=== PATIENT | male | born 1950 | race Caucasian/White ===

== ENCOUNTER 2022-12-01 15:07 | Emergency (ER) | payer OTHER ==
[2022-12-01 15:29] LABS: Lymphocytes % 35.2 % (15.3-44.8); MCV 89.5 fL (80-100); MPV 6.8 fL (7.6-11.3); RBC Red Blood Cell Count 4.81 M/uL (4.33-5.43)
--- NOTE | 2022-12-01 15:40 | RAD REPORT ---
EXAM DESCRIPTION: CT - Head C Spine Mpr Wo Con - 12/01/2022 3:24 pm CLINICAL HISTORY: Head and neck injury status post trauma. Head and neck pain COMPARISON: None. TECHNIQUE: Computed axial tomography of the head and cervical spine was obtained. Sagittal and coronal reconstruction was performed. All CT scans are performed using dose optimization technique as appropriate and may include automated exposure control or mA/KV adjustment according to patient size. FINDINGS: An intracranial bleed is not seen. The ventricles are normal in caliber. An extra-axial fl uid collection is not noted.Fluid within the visualized sinuses and mastoids is not seen A cervical fracture is not visualized. No dislocation is noted. Spondylosis involves the cervical spine. Laceration posterior neck. Air is present within mostly the subcutaneous tissues posteriorly. IMPRESSION: No acute intracranial abnormality is seen. A cervical fracture is not visualized. If the patient continues to have symptoms to suggest intracra nial /spinal cord pathology then MRI would be recommended
[2022-12-01] MEDS ORDERED: BUPIVACAINE 0.5% PF 10 ML VIAL ONE (15:53)
[2022-12-01] MEDS ORDERED: LIDOCAINE 1% 20 ML MDV ONE (15:54)
[2022-12-01] MEDS ORDERED: TDAP (DIPHTH,PERTUSS(ACELL),TET VAC) 0.5 ML VIAL IMVAC ONE (15:56)
[2022-12-01 16:03] LABS: Potassium 3.6 mmol/L (3.5-5.1)
--- NOTE | 2022-12-01 16:41 | ER ---
Nurse's Notes [facility] Name: Alexander Prieto Jr Age: 72 yrs Sex: Male : 1950 Arrival Date: 12/01/2022 Time: 15:12 Bed 2 Private MD: Diagnosis: Laceration without foreign body of unspecified back wall of thorax without penetration into thoracic cavity, sequela;Concussion with loss of consciousness of 30 minutes or less Presentation: 12/01 15:20 Chief complaint: EMS states: Was at medical clinic in [place] waiting for ph appointment when a large piece of sheet metal came through/puntured the wall and hit pt in the back of the neck, no LOC but pt was disoriented for approx 15 minutes after incident, laceration to back of neck, c-collar in place, VSS, pt A\T\O x 4 upon arrival to ED. Coronavirus screen: Vaccine status: Patient reports receiving the 2nd dose of the covid vaccine. Ebola Screen: No symptoms or risks identified at this time. Initial Sepsis Screen: Does the patient meet any 2 criteria? No. Patient's initial sepsis screen is negative. Does the patient have a suspected source of infection? No. Patient's initial sepsis screen is negative. Risk Assessment: Do you want to hurt yourself or someone else? Patient reports no desire to harm self or others. Onset of symptoms was December 01, 2022. 15:20 Method Of Arrival: [facility] ph 15:20 Acuity: AUSTEN 2 ph 15:20 Care prior to arrival: Cervical collar in place. Mechanism of Injury: Laceration ph sustained Medical clinic from metal object, Injury was accidental. Trauma event details: Injury occurred in the [facility], Injury occurred: in a public building. Injury occurred: December 01, 2022. Triage Assessment: 15:29 General: Appears in no apparent distress. Behavior is calm, cooperative, appropriate ph for age. Pain: Complains of pain in posterior cervical area, left trapezius and right trapezius. Trauma Activation: Physician: ED Physician; Name: Elsi; Notified At: 15:15; Arrived At: 15:15 Physician: General Surgeon; Name: ; Notified At: 15:15; Arrived At: Physician: Radiology; Name: Valdez; Notified At: 15:15; Arrived At: 15:15 Physician: Respiratory; Name: ; Notified At: 15:15; Arrived At: Physician: Lab; Name: ; Notified At: 15:15; Arrived At: Historical: - Allergies: 15:29 No Known Allergies; ph - PMHx: 15:29 Hypertensive disorder; ph - Immunization history:: Adult Immunizations unknown. - Social history:: Smoking status: Patient reports the use of cigarette tobacco products, smokes one pack cigarettes per day. - Immunization history: Last tetanus immunization: unknown. Screenin:30 [facility] ED Fall Risk Assessment (Adult) History of falling in the last 3 months, ph including since admission No falls in past 3 months (0 pts) Confusion or Disorientation No (0 pts) Intoxicated or Sedated No (0 pts) Impaired Gait No (0 pts) Mobility Assist Device Used No (0 pt) Altered Elimination No (0 pt) Score/Fall Risk Level 0 - 2 = Low Risk Oriented to surroundings, Maintained a safe environment. Abuse screen: Denies threats or abuse. Denies injuries from another. Nutritional screening: No deficits noted. Tuberculosis screening: No symptoms or risk factors identified. Primary Survey: 15:20 NO uncontrolled hemorrhage observed. A: The client is awake and alert. The airway is ph patent. Breathing/Chest: Spontaneous respiratory effort, equal unlabored respirations, breath sounds clear bilaterally, regular pattern, symmetrical chest rise and fall. Circulation: No external hemorrhage present. Regular and strong central pulse, skin warm/dry/normal color. Disability Pupils are equal, round, reactive to light and accommodation. Client is alert. Exposure/Environment: Obvious injury(ies) are noted at this time: laceration to back of neck A warming method has been applied: A warm blanket has been provided to the patient. 16:30 Reassessment Alertness and Airway: Awake and alert. The airway is patent. Breathing: ph Spontaneous respiratory effort, equal unlabored respirations, breath sounds clear bilaterally, regular pattern with symmetrical chest rise and fall. Circulation: No external hemorrhage noted. Regular and strong central pulse, skin warm/dry/normal color. Disability: Pupils Pupils are equal, round, reactive to light and accomodation. Secondary Survey: 15:34 HEENT: No deficits noted. Gastrointestinal: No deficits noted. Musculoskeletal: Reports ph pain in right trapezius and left trapezius and posterior cervical area. Assessment: 15:36 General: Appears in no apparent distress. Behavior is calm, cooperative, appropriate ph for age. Pain: Complains of pain in right trapezius and left trapezius and posterior cervical area. Neuro: Level of Consciousness is awake, alert, obeys commands, Oriented to person, place, time, situation. Cardiovascular: Capillary refill < 3 seconds in bilateral fingers Patient's skin is warm and dry. Respiratory: Airway is patent Respiratory effort is even, unlabored. GI: No signs and/or symptoms were reported involving the gastrointestinal system. Derm: Skin is healthy with good turgor, Skin is pink, warm \T\ dry. 16:10 Injury Description: Laceration sustained to back of neck and posterior cervical area is ph full thickness, > 20 cm long, not bleeding. Vital Signs: 15:20 BP 131 / 75; Pulse 68; Resp 18; Temp 97.8; Pulse Ox 98% on R/A; Weight 92.99 kg; Height ph 5 ft. 10 in. (177.80 cm); 16:30 BP 142 / 90; Pulse 72; Resp 18; Temp 97.9; Pulse Ox 99% on R/A; ph 17:11 BP 129 / 78; Pulse 71; Resp 18; Temp 98.0; Pulse Ox 99% on R/A; ph 15:20 Body Mass Index 29.41 (92.99 kg, 177.80 cm) ph Branford Coma Score: 15:35 Eye Response: spontaneous(4). Verbal Response: oriented(5). Motor Response: obeys ph commands(6). Total: 15. 16:30 Eye Response: spontaneous(4). Verbal Response: oriented(5). Motor Response: obeys ph commands(6). Total: 15. 17:11 Eye Response: spontaneous(4). Verbal Response: oriented(5). Motor Response: obeys ph commands(6). Total: 15. Trauma Score (Adult): 15:35 Eye Response: spontaneous(1); Verbal Response: oriented(1); Motor Response: obeys ph commands(2); Systolic BP: > 89 mm Hg(4); Respiratory Rate: 10 to 29 per min(4); Grecia Score: 15; Trauma Score: 12 16:30 Eye Response: spontaneous(1); Verbal Response: oriented(1); Motor Response: obeys ph commands(2); Systolic BP: > 89 mm Hg(4); Respiratory Rate: 10 to 29 per min(4); Branford Score: 15; Trauma Score: 12 17:11 Eye Response: spontaneous(1); Verbal Response: oriented(1); Motor Response: obeys ph commands(2); Systolic BP: > 89 mm Hg(4); Respiratory Rate: 10 to 29 per min(4); Grecia Score: 15; Trauma Score: 12 ED Course: 15:12 Patient arrived in ED. ss 15:12 Pollo Calzada DO is Attending Physician. ms3 15:20 Shu Aguila, YAZMIN is Primary Nurse. ph 15:26 CT Head C Spine In Process Unspecified. EDMS 15:28 Triage completed. ph 15:29 Arm band placed on Patient placed in an exam room, on a stretcher, on pulse oximetry. ph 15:30 Patient has correct armband on for positive identification. Bed in low position. Call ph light in reach. Side rails up X 1. Pulse ox on. NIBP on. 15:30 Maintain EMS IV. Dressing intact. Good blood return noted. Site clean \T\ dry. Gauge \T\ ph site: 18 RAC. IV is patent, with fluids infusing freely, with good blood return, Flushed right antecubital with 5 ml normal saline. 15:39 Patient maintains SpO2 saturation greater than 95% on room air. Thermoregulation: warm ph blanket given to patient. 16:10 Assist provider with laceration repair on back of neck and posterior chest that was ph 30.0 cm or greater using and rossy. Set up tray. Performed by Tonny MENDOZA Patient tolerated well. 17:30 IV discontinued, intact, bleeding controlled, No redness/swelling at site. Pressure ph dressing applied. Administered Medications: 16:02 Drug: Lidocaine-Epinephrine -1%: (1:100,000) 10 ml {Note: per KELLY Ramirez.} Volume: ph 20 ml; Route: Infiltration; 16:02 Drug: boosterix 0.5 ml Route: IM; Site: right deltoid; ph 17:15 Follow up: Response: No adverse reaction ph Medication: 16:00 Vaccine Information Statement (VIS) provided today. Questions and/or concerns ph addressed. VIS edition date: June 13, 2021. Intake: 17:11 PO: 0ml; Total: 0ml. ph Output: 17:11 Urine: 0ml; Total: 0ml. ph Outcome: 16:41 Discharge ordered by . ms3 17:06 Discharged to home ambulatory, with family. ph 17:06 Condition: good 17:06 Discharge instructions given to patient, family, Instructed on discharge instructions, follow up and referral plans. wound care, Demonstrated understanding of instructions, follow-up care, wound care. 17:06 Patient's length of stay was not longer than 2 hours. 17:19 Patient left the ED. ph Signatures: Dispatcher [employer] EDMS Andria Sultana RN RN ss Hall, Patricia, RN RN Pollo Waters DO DO ms3
--- NOTE | 2022-12-01 16:41 | EDPHYS ---
Physician Documentation [facility] Name: Alexander Prieto Jr Age: 72 yrs Sex: Male : 1950 Arrival Date: 12/01/2022 Time: 15:12 Bed 2 Private MD: ED Physician Pollo Calzada HPI: 12/01 15:34 This 72 yrs old Male presents to ER via EMS with complaints of neck laceration. ms3 15:34 72-year-old male with past medical history of hypertension presents after sitting at ms3 his primary care physician's office and a piece of sheet metal blowing through the window and wall and striking him in the back of the neck. Patient endorses loss of consciousness and laceration to posterior neck. Patient states he is having mild discomfort.. Historical: - Allergies: 15:29 No Known Allergies; ph - PMHx: 15:29 Hypertensive disorder; ph - Immunization history:: Adult Immunizations unknown. - Social history:: Smoking status: Patient reports the use of cigarette tobacco products, smokes one pack cigarettes per day. - Immunization history: Last tetanus immunization: unknown. ROS: 15:34 Constitutional: Negative for fever, and chills. Cardiovascular: Negative for chest ms3 pain, and palpitations. Respiratory: Negative for shortness of breath, cough, wheezing, and pleuritic chest pain, Abdomen/GI: Negative for abdominal pain, nausea, vomiting, diarrhea, and constipation, MS/Extremity: Negative for injury and deformity, Skin: Negative for injury, rash, and discoloration, Neuro: Negative for headache, weakness, numbness, tingling. 15:34 Neck: Positive for Posterior laceration. Exam: 15:34 Constitutional: This is a well developed, well nourished patient who is awake, alert, ms3 and in no acute distress. Head/Face: Normocephalic, atraumatic. Chest/axilla: Normal chest wall appearance and motion. Nontender with no deformity. Cardiovascular: Regular rate and rhythm with a normal S1 and S2. No gallops, murmurs, or rubs. Normal PMI, no JVD. No pulse deficits. Respiratory: Lungs have equal breath sounds bilaterally, clear to auscultation and percussion. No rales, rhonchi or wheezes noted. No increased work of breathing, no retractions or nasal flaring. Abdomen/GI: Soft, non-tender, with normal bowel sounds. No distension or tympany. No guarding or rebound. No evidence of tenderness throughout. Skin: Warm, dry with normal turgor. Normal color with no rashes, no lesions, and no evidence of cellulitis. 15:34 Neck: External neck: laceration, of the lower cervical area. Vital Signs: 15:20 BP 131 / 75; Pulse 68; Resp 18; Temp 97.8; Pulse Ox 98% on R/A; Weight 92.99 kg; Height ph 5 ft. 10 in. (177.80 cm); 16:30 BP 142 / 90; Pulse 72; Resp 18; Temp 97.9; Pulse Ox 99% on R/A; ph 17:11 BP 129 / 78; Pulse 71; Resp 18; Temp 98.0; Pulse Ox 99% on R/A; ph 15:20 Body Mass Index 29.41 (92.99 kg, 177.80 cm) ph [place] Jean Coma Score: 15:35 Eye Response: spontaneous(4). Verbal Response: oriented(5). Motor Response: obeys ph commands(6). Total: 15. 16:30 Eye Response: spontaneous(4). Verbal Response: oriented(5). Motor Response: obeys ph commands(6). Total: 15. 17:11 Eye Response: spontaneous(4). Verbal Response: oriented(5). Motor Response: obeys ph commands(6). Total: 15. Trauma Score (Adult): 15:35 Eye Response: spontaneous(1); Verbal Response: oriented(1); Motor Response: obeys ph commands(2); Systolic BP: > 89 mm Hg(4); Respiratory Rate: 10 to 29 per min(4); Grecia Score: 15; Trauma Score: 12 16:30 Eye Response: spontaneous(1); Verbal Response: oriented(1); Motor Response: obeys ph commands(2); Systolic BP: > 89 mm Hg(4); Respiratory Rate: 10 to 29 per min(4); Grecia Score: 15; Trauma Score: 12 17:11 Eye Response: spontaneous(1); Verbal Response: oriented(1); Motor Response: obeys ph commands(2); Systolic BP: > 89 mm Hg(4); Respiratory Rate: 10 to 29 per min(4); Grecia Score: 15; Trauma Score: 12 Laceration: 16:36 Wound Repair of 13cm ( 5.1in ) subcutaneous laceration to posterior cervical area. cp Linear shaped.. Distal neuro/vascular/tendon intact. Anesthesia: Wound infiltrated with 10 mls of Lido/Marcaine. Wound prep: Extensive cleansing by me, Wound irrigation by me. Subcutaneous tissue closed with 6 4-0 Vicryl using interrupted sutures and sterile technique. Skin closed with 15 Brick using staple gun. Dressed with Bacitracin, 4x4's. Patient tolerated well. MDM: 15:12 Patient medically screened. ms3 15:33 Independent interpretation of the following test(s) in the Emergency Department CT ms3 Scan: My interpretation is CT head without bleeding. CT Cervical spine- ST gas, no fractures. 19:27 Differential diagnosis: closed head injury, C spine fracture, T spine fracture. Data ms3 reviewed: vital signs, nurses notes, lab test result(s), radiologic studies, CT scan, and as a result, I will discharge patient. Consideration of Admission/Observation Escalation of care including admission/observation considered. No emergent medical condition necessitating admission found at this time. I considered the following discharge prescriptions or medication management in the emergency department Medications were administered in the Emergency Department. See MAR. Historians other than the Patient: EMS: [facility]. Counseling: I had a detailed discussion with the patient and/or guardian regarding: the historical points, exam findings, and any diagnostic results supporting the discharge/admit diagnosis, lab results, radiology results, the need for outpatient follow up, to return to the emergency department if symptoms worsen or persist or if there are any questions or concerns that arise at home. Special discussion: I discussed with the patient/guardian in detail that at this point there is no indication for admission to the hospital. It is understood, however, that if the symptoms persist or worsen the patient needs to return immediately for re-evaluation. ED course: On reevaluation patient improved, laceration closed after copious irrigation. Patient to follow-up his primary care physician in 2 weeks for staple removal. Patient understands and agrees with plan. All questions were answered. Return precautions discussed to include fevers, numbness, weakness, worsening symptoms, or any other concerns.. 12/01 15:13 Order name: Basic Metabolic Panel ms3 12/01 15:13 Order name: CBC with Diff; Complete Time: 15:32 ms3 12/01 15:13 Order name: Type And Screen ms3 12/01 15:13 Order name: CT Head C Spine; Complete Time: 15:44 ms3 12/01 17:05 Order name: ABO/RH no charge EDMS 12/01 15:13 Order name: Labs collected and sent; Complete Time: 15:36 ms3 12/01 15:29 Order name: Labs - recollect needed: recollect type and screen; Complete Time: 15:39 bd Administered Medications: 16:02 Drug: Lidocaine-Epinephrine -1%: (1:100,000) 10 ml {Note: per KELLY Ramirez.} Volume: ph 20 ml; Route: Infiltration; 16:02 Drug: boosterix 0.5 ml Route: IM; Site: right deltoid; ph 17:15 Follow up: Response: No adverse reaction ph Disposition: 18:49 Co-signature as Attending Physician, Pollo Calzada DO. ms3 Disposition Summary: 12/01/22 16:41 Discharge Ordered Location: Home ms3 Condition: Stable ms3 Diagnosis - Laceration without foreign body of unspecified back wall of thorax without ms3 penetration into thoracic cavity, sequela - Concussion with loss of consciousness of 30 minutes or less ms3 Followup: ms3 - With: Private Physician - When: 2 - 3 days - Reason: Recheck today's complaints Discharge Instructions: - Discharge Summary Sheet ms3 - Laceration Care, Adult ms3 - Concussion, Adult, [id number] ms3 Forms: - Medication Reconciliation Form ms3 - Thank You Letter ms3 - Antibiotic Education ms3 - Prescription Opioid Use ms3 Signatures: Dispatcher [employer] Camille Fraser Patricia, RN RN ph Flory, KELLY Lancaster cp, Marcus, DO DO ms3
[2022-12-01 18:12] VITALS: O2SAT 99
[2022-12-01 18:13] VITALS: BP 129/78; TEMP 98
== END 2022-12-01 17:19 | disposition home or self-care (01) ==
LOC: ER 15:07
PROC: 0HQ4XZZ Repair Neck Skin, External Approach (ICD-10-PCS; principal; 2022-12-01)
DX: S11.91XA Laceration without foreign body of unspecified part of neck, initial encounter (principal); S06.0X1A Concussion with loss of consciousness of 30 minutes or less, initial encounter; F17.210 Nicotine dependence, cigarettes, uncomplicated; I10 Essential (primary) hypertension
CPT/HCPCS: 85025; 80048; 36415; 86900; 86850; 86901; 70450; 72125; 12005; J2001